=== PATIENT | male | born 1990 | race Caucasian/White ===

== ENCOUNTER 2020-10-15 01:21 | Emergency (ER) | payer OTHER, MEDICAID ==
[~2020-10-15] VITALS: Ht 188 cm; Wt 73.9 kg
[2020-10-15 01:30] VITALS: BP 104/77
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
--- NOTE | 2020-10-15 02:17 | NUR ---
f/u and d/c instructions given to pt and he v/u. pt ambulatory without issue.
== END 2020-10-15 02:19 | disposition home or self-care (01) ==
LOC: ED 02:13
DX: S90.822A Blister (nonthermal), left foot, initial encounter (principal); S90.821A Blister (nonthermal), right foot, initial encounter; M79.672 Pain in left foot; M79.671 Pain in right foot; Z72.9 Problem related to lifestyle, unspecified; F17.200 Nicotine dependence, unspecified, uncomplicated; X58.XXXA Exposure to other specified factors, initial encounter; Y93.89 Activity, other specified; Y92.89 Other specified places as the place of occurrence of the external cause; Y99.8 Other external cause status
CPT/HCPCS: 99283

== ENCOUNTER 2021-03-17 10:53 | Emergency (ER) | payer MEDICAID ==
[~2021-03-17] VITALS: Ht 188 cm; Wt 74.4 kg
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
--- NOTE | 2021-03-17 11:48 | NUR ---
Dr Rucker at [facility] for exam
[2021-03-17] MEDS ORDERED: ONDANSETRON ODT 4 MG ONE (12:16)
[2021-03-17] MEDS ORDERED: MAALOX/HYOSCYAMINE/LIDOCAINE 45 ML BTL ONE (12:17)
--- NOTE | 2021-03-17 12:21 | NUR ---
GI COCKTAIL AND ZOFRAN GIVEN PER MAR.
[2021-03-17] MEDS ORDERED: ONDANSETRON ODT 4 MG PO ONE (12:30)
[2021-03-17] MEDS ORDERED: MAALOX/HYOSCYAMINE/LIDOCAINE 45 ML BTL PO ONE (12:30)
[2021-03-17 12:33] LABS: BASOPHILS % (AUTO) 1 % (0-1); EOSINOPHILS % (AUTO) 1 % (1-7); LYMPHOCYTES % (AUTO) 9 % (22-44); MEAN CORPUSCULAR HEMOGLOBIN 29.8 pg (27.5-34.5); MEAN CORPUSCULAR HGB CONC 34.2 g/dL (33.2-36.2); MEAN PLATELET VOLUME 8.2 fL (7.4-10.4); MONOCYTES % (AUTO) 7 % (2-9); NEUTROPHILS % (AUTO) 82 % (42-75); PLATELET COUNT 300 x10^3/uL (130-400); RED BLOOD COUNT 5.06 x10^6/uL (4.38-5.82); RED CELL DISTRIBUTION WIDTH 14.4 % (9.4-14.8)
[2021-03-17 12:46] LABS: ALBUMIN 3.7 g/dL (3.4-5.0); ANION GAP 6 mmol/L (5-15); CALCIUM 8.7 mg/dL (8.5-10.1); CHLORIDE 105 mmol/L (98-107)
[2021-03-17 12:51] LABS: ALANINE AMINOTRANSFERASE 532 U/L (12-78); ALKALINE PHOSPHATASE 109 U/L (45-117); BILIRUBIN,TOTAL 0.5 mg/dL (0.2-1.0); CREATININE 0.92 mg/dL (0.7-1.3); TOTAL PROTEIN 7.4 g/dL (6.4-8.2)
--- NOTE | 2021-03-17 13:14 | NUR ---
PT DOZING, EVEN CHEST RISE AND FALL NOTED.
[2021-03-17 14:34] VITALS: BP 114/64
--- NOTE | 2021-03-17 14:37 | NUR ---
WRITTEN DC INSTRUCTIONS DISCUSSED W/ PT; QUESTIONS ANSWERED; UNDERSTANDING VERBALIZED. PT AMBULATORY TO DC DESK W/ STEADY GAIT.
== END 2021-03-17 14:40 | disposition home or self-care (01) ==
LOC: ED 14:25
DX: K75.9 Inflammatory liver disease, unspecified (principal); F17.200 Nicotine dependence, unspecified, uncomplicated
CPT/HCPCS: 36415; 76700; 80053; 80074; 83690; 85025; 87521; 99284; Q0162